=== PATIENT | female | born 1955 | race Caucasian/White ===

== ENCOUNTER 2016-08-26 13:43 | Inpatient (IN) | payer BC ==
[~2016-08-26] VITALS: Ht 167.6 cm; Wt 126.4 kg
[~2016-08-26 13:43] MED LIST: ALBU8.5H5 INH; BECL8.7A5 PO; FORM12CA PO; GABA100C8 PO; HYDR12.53 PO; LEVO25TA2 PO; OXYC-302 PO
[2016-08-26] MEDS ORDERED: NITROGLYCERIN OINT 2%, 1GM TP ONE ×2 (14:00→14:10)
[2016-08-26] MEDS ORDERED: SODIUM CHLORIDE FLUSH 10ML SYR IVF ONE (14:00)
[2016-08-26 14:31] LABS: ASPARTATE AMINO TRANSFERASE 22 U/L (15-37); BLOOD UREA NITROGEN 15 mg/dL (7-18)
[2016-08-26 14:37] LABS: IS PT STATUS REG ER OR PRE ER? YES
[2016-08-26] MEDS ORDERED: ACETAMINOPHEN 325 MG TABLET ONE (15:27)
[2016-08-26] MEDS ORDERED: ACETAMINOPHEN 325 MG TABLET PO ONE (15:30)
[2016-08-26] MEDS ORDERED: POTASSIUM CHLORIDE 20 MEQ TAB.ER.PRT ONE (15:54)
[2016-08-26] MEDS ORDERED: POTASSIUM CHLORIDE 20 MEQ TAB.ER.PRT PO ONE ×2 (16:00→19:00)
[2016-08-26] MEDS ORDERED: TRAZ150T68 PO (16:08)
[2016-08-26] MEDS ORDERED: SERT100T5 PO (16:08)
[2016-08-26] MEDS ORDERED: FLUT1AER PO (16:08)
[2016-08-26] MEDS ORDERED: TEMAZEPAM 15 MG CAPSULE PO PRN (18:30)
[2016-08-26] MEDS ORDERED: POLYETHYLENE GLYCOL 17 GM PACKET PO PRN (18:30)
[2016-08-26] MEDS ORDERED: ENALAPRILAT 1.25 MG/ML, 2ML IVPush PRN (18:30)
[2016-08-26] MEDS ORDERED: ACETAMINOPHEN 325 MG TABLET PO PRN (18:30)
[2016-08-26] MEDS ORDERED: ONDANSETRON 2MG/ML, 2ML IVPush PRN (18:30)
[2016-08-26] MEDS ORDERED: HYDROmorphone 2 MG/ML, 1ML IVPush PRN (18:30)
[2016-08-26] MEDS ORDERED: ALBUTEROL SULFATE 2.5 MG/3 ML NPPB PRN (19:30)
[2016-08-26 19:49] VITALS: BP 129/84
[2016-08-26] MEDS: ENOXAPARIN 40 MG/0.4 ML SQ SCH (20:00)
[2016-08-26] MEDS: HYDROcodone/APAP 5/325 TABLET PO PRN (21:05)
[2016-08-26] MEDS: TRAZODONE 150MG TABLET PO SCH (21:06)
[2016-08-26 22:35] LABS: IS PT STATUS REG ER OR PRE ER? NO
[2016-08-26 22:48] LABS: PATH.CAST-FLAG NOT PRESENT; SPERM-FLAG NOT PRESENT; SRC-FLAG NOT PRESENT; XTAL-FLAG NOT PRESENT; YLC-FLAG NOT PRESENT
[2016-08-27] MEDS ORDERED: CEFTRIAXONE 1,000 MG IM SCH (00:30)
[2016-08-27] MEDS: CEFTRIAXONE PMX 1GM/50ML 50 ML IV SCH (01:00)
[2016-08-27] MEDS: HYDROcodone/APAP 5/325 TABLET PO PRN ×4 (01:28→17:53)
[2016-08-27 01:33] VITALS: BP 119/77
[2016-08-27] MEDS: ASPIRIN 325 MG TABLET EC PO SCH (05:51)
[2016-08-27] MEDS: LEVOTHYROXINE 25 MCG TABLET PO SCH (05:51)
[2016-08-27 07:02] VITALS: BP 136/85
[2016-08-27] MEDS: GABAPENTIN 100 MG CAPSULE PO SCH (07:49)
[2016-08-27] MEDS: SERTRALINE 100MG TABLET PO SCH (07:50)
[2016-08-27 08:11] LABS: BLOOD UREA NITROGEN 12 mg/dL (7-18)
[2016-08-27 08:19] LABS: IS PT STATUS REG ER OR PRE ER? NO
[2016-08-27] MEDS: FLUTICASONE/VILANTEROL 100-25MCG/INH INH SCH (08:30)
[2016-08-27] MEDS ORDERED: REGADENOSON 0.4 MG/5 ML SYRINGE ONE (08:41)
[2016-08-27] MEDS ORDERED: HYDROCHLOROTHIAZIDE 12.5 MG CAPSULE PO SCH (09:00)
[2016-08-27] MEDS ORDERED: LEVOTHYROXINE 25 MCG TABLET PO SCH (09:00)
[2016-08-27] MEDS: HYDROCHLOROTHIAZIDE 12.5 MG CAPSULE PO SCH (11:59)
[2016-08-27 12:01] VITALS: BP 120/83
[2016-08-27] MEDS: ENOXAPARIN 40 MG/0.4 ML SQ SCH (20:00)
[2016-08-27] MEDS: TRAZODONE 150MG TABLET PO SCH (20:26)
[2016-08-27 20:31] VITALS: BP 122/72
[2016-08-28] MEDS ORDERED: CEFTRIAXONE 1,000 MG IVPB SCH (00:30)
[2016-08-28] MEDS: HYDROcodone/APAP 5/325 TABLET PO PRN ×2 (00:46→06:00)
[2016-08-28] MEDS: CEFTRIAXONE PMX 1GM/50ML 50 ML IV SCH (00:49)
[2016-08-28 02:16] VITALS: BP 123/76
[2016-08-28] MEDS: ASPIRIN 325 MG TABLET EC PO SCH (06:00)
[2016-08-28] MEDS: LEVOTHYROXINE 25 MCG TABLET PO SCH (06:01)
[2016-08-28 06:42] VITALS: BP 120/79
[2016-08-28] MEDS ORDERED: CEFD300C37 PO (07:35)
[2016-08-28] MEDS ORDERED: SIMV40TA PO (07:48)
[2016-08-28] MEDS ORDERED: CEFDINIR 300 MG CAPSULE PO SCH (09:00)
[2016-08-28] MEDS: FLUTICASONE/VILANTEROL 100-25MCG/INH INH SCH (09:03)
[2016-08-28] MEDS: SERTRALINE 100MG TABLET PO SCH (09:03)
[2016-08-28] MEDS: GABAPENTIN 100 MG CAPSULE PO SCH (09:04)
[2016-08-28] MEDS: HYDROCHLOROTHIAZIDE 12.5 MG CAPSULE PO SCH (09:04)
== END 2016-08-28 11:26 | disposition home or self-care (01) | DRG 313 ==
LOC: ED 16:19 → EDIP 16:41 → 5SO 19:01 → DCLOUNGE 08-28 11:11
PROVIDERS: ADMIT Internal Medicine; ATTEND Internal Medicine
DX: R07.89 Other chest pain (principal); N39.0 Urinary tract infection, site not specified; Z68.42 Body mass index [BMI] 45.0-49.9, adult; I10 Essential (primary) hypertension; Z82.49 Family history of ischemic heart disease and other diseases of the circulatory system; E66.01 Morbid (severe) obesity due to excess calories; E03.9 Hypothyroidism, unspecified; M19.90 Unspecified osteoarthritis, unspecified site; G89.29 Other chronic pain; E78.5 Hyperlipidemia, unspecified; M54.9 Dorsalgia, unspecified; F32.9 Major depressive disorder, single episode, unspecified; Z96.653 Presence of artificial knee joint, bilateral; Z90.49 Acquired absence of other specified parts of digestive tract; Z88.0 Allergy status to penicillin; Z88.2 Allergy status to sulfonamides; Z88.6 Allergy status to analgesic agent; Z91.041 Radiographic dye allergy status
CPT/HCPCS: 36415; 71010; 78452; 80048; 80053; 80061; 81001; 83880; 84439; 84443; 84484; 85025; 85610; 85730; 87086; 93005; 93017; 99285; J0696; J2785; A9502; C9898

== ENCOUNTER 2017-08-10 11:51 | Emergency (ER) | payer BC ==
[~2017-08-10] VITALS: Ht 162.6 cm; Wt 110.0 kg
[~2017-08-10 11:51] MED LIST changes: -BECL8.7A5 PO; +BECL8.7A7 PO; +CEFD300C37 PO; +FLUT1AER PO; +GABA-826 PO; -GABA100C8 PO; +SERT100T5 PO; +SIMV40TA PO; +TRAZ150T62 PO
[2017-08-10] MEDS ORDERED: LORazepam 1MG TABLET ONE (12:08)
[2017-08-10] MEDS ORDERED: SODIUM CHLORIDE FLUSH 10ML SYR IVF ONE (12:30)
[2017-08-10] MEDS ORDERED: LORazepam 1MG TABLET PO ONE (12:30)
[2017-08-10] MEDS ORDERED: ALBUTEROL/IPRATROPIUM 2.5MG/0.5MG, 3 ML NEB ONE (12:30)
[2017-08-10 12:37] LABS: BASOPHILS # (AUTO) 0.05 x10^3/uL (0-0.1); BASOPHILS % (AUTO) 0 % (0-1); EOSINOPHILS % (AUTO) 0 % (1-7); LYMPHOCYTES # (AUTO) 2.49 x10^3/uL (1-3.4); LYMPHOCYTES % (AUTO) 18 % (22-44); MD NO; MEAN CORPUSCULAR HEMOGLOBIN 33.6 pg (27.0-34.8); MEAN CORPUSCULAR HGB CONC 33.6 g/dL (32.4-35.8); MEAN CORPUSCULAR VOLUME 100.3 fL (80-100); MEAN PLATELET VOLUME 7.7 fL (7.4-10.4); MONOCYTES # (AUTO) 0.39 x10^3/uL (0.2-0.8); MONOCYTES % (AUTO) 3 % (2-9); NEUTROPHILS # (AUTO) 11.22 x10^3/uL (1.8-6.8); NEUTROPHILS % (AUTO) 79 % (42-75); PLATELET COUNT 324 x10^3/uL (130-400); RED BLOOD COUNT 4.62 x10^6/uL (3.82-5.3); RED CELL DISTRIBUTION WIDTH 13.8 % (9.6-15.2)
[2017-08-10 12:50] LABS: ALBUMIN 3.6 g/dL (3.4-5.0); ANION GAP 13 mmol/L (5-15); CALCIUM 9.7 mg/dL (8.5-10.1); CHLORIDE 105 mmol/L (98-107); CREATININE 1.32 mg/dL (0.55-1.02)
[2017-08-10 12:54] LABS: TROPONIN I < 0.015 ng/mL (0.000-0.045)
[2017-08-10 14:41] VITALS: BP 114/68
== END 2017-08-10 14:43 | disposition home or self-care (01) ==
LOC: ED 14:37
DX: J45.41 Moderate persistent asthma with (acute) exacerbation (principal); F41.9 Anxiety disorder, unspecified; I10 Essential (primary) hypertension; M19.90 Unspecified osteoarthritis, unspecified site
CPT/HCPCS: 36415; 71045; 80048; 82040; 83880; 84484; 85025; 85379; 93005; 94640; 99285; J7620

== ENCOUNTER → 2018-02-08 | Outpatient (CLI) | payer BC | END | disposition home or self-care (01) | LOC: CFH 12:23 | PROVIDERS: ATTEND Internal Medicine | DX: J84.9 Interstitial pulmonary disease, unspecified (principal); R91.8 Other nonspecific abnormal finding of lung field | CPT/HCPCS: 71250 ==

== ENCOUNTER 2018-09-06 06:00 | Emergency (ER) | payer BC, OTHER ==
[~2018-09-06] VITALS: Ht 165.1 cm; Wt 125.0 kg
[~2018-09-06 06:00] MED LIST changes: +HYDR12.517 PO; -HYDR12.53 PO; +SERT100T32 PO; -SERT100T5 PO
--- NOTE | 2018-09-06 06:16 | NUR ---
BIB [facility] PT STARTED FEELING SOB AT 0300 TODAY, H/X ASTHMA, USED HOME INHALER WITH NO RELIEF, PER EMS ON THEIR ARRIVAL 97% R/A, RR-30, HR-65, B/P-99/50, PT RECIEVED 100 CC OF NORMAL SALINE BOLUS AND B/P RECHECK 130/70. PT ALSO C/O B/L HAND TINGLING. MONITORS APPLIED, SIDERAILS UP X2, CALL LIGHT WITHIN REACH
[2018-09-06] MEDS ORDERED: ALBUTEROL/IPRATROPIUM 2.5MG/0.5MG, 3 ML ONE (06:19)
[2018-09-06] MEDS ORDERED: ALBUTEROL/IPRATROPIUM 2.5MG/0.5MG, 3 ML NPPB ONE (06:30)
[2018-09-06] MEDS ORDERED: SODIUM CHLORIDE FLUSH 10ML SYR IVF ONE (06:30)
[2018-09-06] MEDS ORDERED: LORazepam 1MG TABLET PO ONE (06:30)
[2018-09-06] MEDS ORDERED: MONT4GRA PO (06:31)
[2018-09-06] MEDS ORDERED: SERT25TA PO (06:31)
[2018-09-06] MEDS ORDERED: LORazepam 1MG TABLET ONE (06:32)
--- NOTE | 2018-09-06 06:35 | NUR ---
PT MEDICATED PER JUN. AWAITING XRAY AND LAB RESULTS
[2018-09-06 06:46] LABS: ALANINE AMINOTRANSFERASE 23 U/L (12-78); ALBUMIN 3.6 g/dL (3.4-5.0); ANION GAP 7 mmol/L (5-15); CALCIUM 9.3 mg/dL (8.5-10.1); CHLORIDE 107 mmol/L (98-107); CREATININE 0.97 mg/dL (0.55-1.02)
[2018-09-06 06:50] LABS: ALKALINE PHOSPHATASE 54 U/L (45-117); BILIRUBIN,TOTAL 0.7 mg/dL (0.2-1.0); TOTAL PROTEIN 6.8 g/dL (6.4-8.2); TROPONIN I < 0.015 ng/mL (0.000-0.045)
[2018-09-06 06:53] LABS: BASOPHILS # (AUTO) 0.04 x10^3/uL (0-0.1); BASOPHILS % (AUTO) 0 % (0-1); EOSINOPHILS # (AUTO) 0.81 x10^3/uL (0-0.4); EOSINOPHILS % (AUTO) 8 % (1-7); LYMPHOCYTES # (AUTO) 2.99 x10^3/uL (1-3.4); LYMPHOCYTES % (AUTO) 28 % (22-44); MD NO; MEAN CORPUSCULAR HEMOGLOBIN 33.3 pg (27.0-34.8); MEAN CORPUSCULAR HGB CONC 32.6 g/dL (32.4-35.8); MEAN CORPUSCULAR VOLUME 102.2 fL (80-100); MEAN PLATELET VOLUME 7.9 fL (7.4-10.4); MONOCYTES # (AUTO) 0.73 x10^3/uL (0.2-0.8); MONOCYTES % (AUTO) 7 % (2-9); NEUTROPHILS # (AUTO) 6.05 x10^3/uL (1.8-6.8); NEUTROPHILS % (AUTO) 57 % (42-75); PLATELET COUNT 264 x10^3/uL (130-400); RED BLOOD COUNT 4.56 x10^6/uL (3.82-5.3); RED CELL DISTRIBUTION WIDTH 14.1 % (9.6-15.2)
--- NOTE | 2018-09-06 06:55 | NUR ---
REPORT GIVEN TO MEAGAN VALLECILLO
[2018-09-06 07:08] LABS: FREE T4 (FREE THYROXINE) 1.17 ng/dL (0.76-1.46)
--- NOTE | 2018-09-06 07:09 | NUR ---
receivED BEDSIDE REPORT FROM MEAGAN CHANG. PT RESTING ON GURNEY. NO ACUTE DISTRESS NOTED. PT STATES SHE DOESN'T WEAR OXYGEN AT HOME. NO NEEDS REQUESTED AT THIS TIME.
[2018-09-06 07:10] VITALS: BP 130/58
--- NOTE | 2018-09-06 07:55 | NUR ---
LATE ENTRY FOR 729 Patient/Caregiver given discharge instructions and they have confirmed that they understand the instructions. Patient ambulatory with steady gait. PT LEFT WITH ALL PERSONAL BELONGINGS. PIV D/C WITH TIP INTACT. PRESSURE DRESSING APPLIED.
== END 2018-09-06 07:56 | disposition home or self-care (01) ==
LOC: ED 07:35
DX: J45.41 Moderate persistent asthma with (acute) exacerbation (principal); F41.1 Generalized anxiety disorder
CPT/HCPCS: 36415; 71045; 80053; 83880; 84439; 84443; 84484; 85025; 93005; 94640; 99284; J7512; J7620

== ENCOUNTER 2018-10-12 17:17 | Outpatient (CLI) | payer OTHER ==
[~2018-10-12 17:17] MED LIST changes: +MONT4GRA PO; +SERT25TA PO
== END 2018-10-12 23:59 | disposition home or self-care (01) ==
LOC: RAD 17:17
PROVIDERS: ATTEND Pain Medicine Pain Medicine
DX: M16.0 Bilateral primary osteoarthritis of hip (principal); M43.16 Spondylolisthesis, lumbar region; M51.37 Other intervertebral disc degeneration, lumbosacral region; M47.896 Other spondylosis, lumbar region
CPT/HCPCS: 72110; 72170

== ENCOUNTER 2019-06-05 11:24 | Emergency (ER) | payer BC, OTHER ==
[~2019-06-05] VITALS: Ht 165.1 cm; Wt 120.7 kg
[2019-06-05] MEDS ORDERED: DIAZEPAM 5 MG TABLET ONE (11:45)
[2019-06-05] MEDS ORDERED: HYDROcodone/APAP 5/325 TABLET ONE (11:46)
[2019-06-05] MEDS ORDERED: KETOROLAC 30 MG/1 ML ONE (11:46)
--- NOTE | 2019-06-05 11:55 | NUR ---
PT MEDICATED PER ORDERS. VSS. RV'WD POC WITH HER. SON AT BEDSIDE.
[2019-06-05] MEDS ORDERED: HYDROcodone/APAP 5/325 TABLET PO ONE (12:00)
[2019-06-05] MEDS ORDERED: KETOROLAC 30 MG/1 ML IM ONE (12:00)
[2019-06-05] MEDS ORDERED: DIAZEPAM 5 MG TABLET PO ONE (12:00)
[2019-06-05 13:17] VITALS: BP 138/75
--- NOTE | 2019-06-05 13:19 | NUR ---
D/C INSTRUCTIONS, MEDS & F/U APPT RV'WD WITH PT, SHE VERBALIZES UNDERSTANDING. RX GIVEN X2. ASSISTED PT OUT OF ED VIA WC WITH SON.
== END 2019-06-05 13:21 | disposition home or self-care (01) ==
LOC: ED 13:15
DX: S39.012A Strain of muscle, fascia and tendon of lower back, initial encounter (principal); G89.29 Other chronic pain; M54.41 Lumbago with sciatica, right side; J45.909 Unspecified asthma, uncomplicated; I10 Essential (primary) hypertension; X58.XXXA Exposure to other specified factors, initial encounter; Y93.89 Activity, other specified; Y92.89 Other specified places as the place of occurrence of the external cause; Y99.8 Other external cause status
CPT/HCPCS: 96372; 99283; J1885

== ENCOUNTER 2019-08-24 05:22 | Day surgery (SDC) | payer BC ==
[~2019-08-24] VITALS: Ht 165.1 cm; Wt 122.0 kg
[~2019-08-24 05:22] MED LIST changes: +LEVO150T5 PO; +MULT-658 PO; +MV-M1TAB16 PO; +PRED10TA PO; +hydrochlorothiazide PO; +prednisone PO; +singulair PO; +trazodone PO
[2019-08-24] MEDS ORDERED: CHLORHEXIDINE 15 ML UDC MM STA (05:57)
[2019-08-24] MEDS ORDERED: MIDAZOLAM 1 MG/ML, 2ML ONE (06:13)
[2019-08-24] MEDS ORDERED: FENTANYL PF 250 MCG/5ML ONE ×2 (06:13→07:26)
[2019-08-24] MEDS ORDERED: PHENYLEPHRINE 10 MG/ML ONE (06:16)
[2019-08-24] MEDS ORDERED: GLYCOPYRROLATE 0.2MG/1ML, 5ML ONE (06:18)
[2019-08-24] MEDS ORDERED: DEXAMETHASONE 4 MG/ML, 1ML ONE (06:18)
[2019-08-24] MEDS ORDERED: NEOSTIGMINE 1 MG/ML, 10ML ONE (06:18)
[2019-08-24] MEDS ORDERED: CEFAZOLIN 1,000 MG ONE (06:18)
[2019-08-24] MEDS ORDERED: PROPOFOL 10 MG/ML, 20ML ONE (06:18)
[2019-08-24] MEDS ORDERED: ONDANSETRON 2MG/ML, 2ML ONE (06:18)
[2019-08-24] MEDS ORDERED: ROCURONIUM 10MG/ML,5ML ONE (06:18)
[2019-08-24] MEDS ORDERED: KETOROLAC 60 MG/2 ML ONE (06:25)
[2019-08-24] MEDS ORDERED: TRANEXAMIC ACID 100 MG/ML, 10ML ONE ×4 (06:25→06:42)
[2019-08-24] MEDS ORDERED: EPINEPHRINE 1 MG/ML, 1ML ONE (06:26)
[2019-08-24] MEDS ORDERED: VANCOMYCIN 1,000 MG ONE ×2 (06:26→06:40)
[2019-08-24] MEDS ORDERED: ROPIvacaine/PF 0.5%, 20 ML ONE (06:26)
[2019-08-24] MEDS ORDERED: SODIUM CHLORIDE 0.9% 50 ML ONE (06:26)
[2019-08-24] MEDS ORDERED: ROPIvacaine/PF 0.5%, 30 ML ONE (06:26)
[2019-08-24] MEDS ORDERED: morphine SULFATE 10 MG/ML, 1ML IVPush PRN (06:30)
[2019-08-24] MEDS ORDERED: ALBUTEROL/IPRATROPIUM 2.5MG/0.5MG, 3 ML NPPB PRN (06:30)
[2019-08-24] MEDS ORDERED: LABETALOL 5MG/ML, 20ML IV PRN (06:30)
[2019-08-24] MEDS ORDERED: HALOPERIDOL 5 MG/ML IV PRN (06:30)
[2019-08-24] MEDS ORDERED: PROMETHAZINE 25 MG/ML, 1ML IVPush PRN (06:30)
[2019-08-24] MEDS ORDERED: GABAPENTIN 300 MG CAPSULE PO ONE (06:30)
[2019-08-24] MEDS ORDERED: OXYcodone 5 MG/5 ML ORAL.SOL UDC PO PRN (06:30)
[2019-08-24] MEDS ORDERED: ACETAMINOPHEN 500 MG TABLET PO ONE (06:30)
[2019-08-24] MEDS ORDERED: MEPERIDINE/PF 25MG/0.5ML IVPush PRN (06:30)
[2019-08-24] MEDS ORDERED: ALBUTEROL SULFATE 2.5 MG/3 ML NPPB PRN (06:30)
[2019-08-24] MEDS ORDERED: HYDROmorphone 1 MG/ML, 1ML INJ IVPush PRN (06:30)
[2019-08-24] MEDS ORDERED: hydrALAzine 20 MG/ML, 1ML IV PRN (06:30)
[2019-08-24] MEDS ORDERED: LACTATED RINGERS 1,000 ML IV SCH (06:31)
[2019-08-24] MEDS ORDERED: SCOPOLAMINE 1MG PATCH TD ONE ×2 (06:38→07:00)
[2019-08-24] MEDS ORDERED: NS + 20MEQ KCL 1,000 ML IV SCH (06:40)
[2019-08-24] MEDS ORDERED: GENTAMICIN 80 MG/2 ML ONE ×2 (06:46)
[2019-08-24] MEDS ORDERED: MAGNESIUM HYDROXIDE 8%, 30ML UDC PO PRN (07:00)
[2019-08-24] MEDS ORDERED: OXYcodone IR 5MG TABLET PO PRN (07:00)
[2019-08-24] MEDS ORDERED: HYDROcodone/APAP 5/325 TABLET PO PRN (07:00)
[2019-08-24] MEDS ORDERED: SENNA/DOCUSATE TABLET PO PRN (07:00)
[2019-08-24] MEDS ORDERED: ONDANSETRON 4 MG TABLET PO PRN (07:00)
[2019-08-24] MEDS ORDERED: ACETAMINOPHEN 650 MG/20.3 ML UDC PO PRN (07:00)
[2019-08-24] MEDS ORDERED: ZOLPIDEM 5MG TABLET PO PRN (07:00)
[2019-08-24] MEDS ORDERED: ONDANSETRON 2MG/ML, 2ML IV PRN (07:00)
[2019-08-24] MEDS ORDERED: VANCOMYCIN PMX 1GM/200ML 200 ML IV ONE (07:00)
[2019-08-24] MEDS ORDERED: DIPHENHYDRAMINE 50 MG CAPSULE PO PRN (07:00)
[2019-08-24] MEDS ORDERED: BISACODYL 10 MG SUPP PR PRN (07:00)
[2019-08-24] MEDS ORDERED: ACETAMINOPHEN 650 MG/20.3 ML UDC ONE (08:16)
[2019-08-24] MEDS ORDERED: FENTANYL PF 100 MCG/2ML ONE ×3 (08:16→08:59)
[2019-08-24] MEDS ORDERED: ACETAMINOPHEN 325 MG TABLET ONE (08:17)
[2019-08-24] MEDS ORDERED: HYDROmorphone 2 MG/ML, 1ML ONE (08:17)
[2019-08-24] MEDS ORDERED: OXYcodone 5 MG/5 ML ORAL.SOL UDC ONE (08:17)
[2019-08-24] MEDS ORDERED: MEPERIDINE/PF 25MG/ML,1ML ONE (08:17)
[2019-08-24] MEDS ORDERED: FENTANYL PF 100 MCG/2ML IVPush ONE ×3 (08:30)
[2019-08-24] MEDS ORDERED: HYDROmorphone 1 MG/ML, 1ML INJ IV ONE ×2 (08:30)
[2019-08-24] MEDS: FENTANYL PF 100 MCG/2ML IV PRN ×3 (08:50→09:10)
[2019-08-24] MEDS ORDERED: DOCUSATE 100 MG CAPSULE PO SCH (09:00)
[2019-08-24] MEDS ORDERED: LEVOTHYROXINE 150 MCG TABLET PO SCH (09:00)
[2019-08-24] MEDS ORDERED: FLUTICASONE/VILANTEROL 100-25MCG/INH INH SCH (09:00)
[2019-08-24] MEDS ORDERED: ALBUTEROL SULFATE 2.5 MG/3 ML HHN SCH (11:00)
[2019-08-24] MEDS ORDERED: BUDESONIDE 0.5 MG/2 ML INHA HHN SCH (11:00)
[2019-08-24] MEDS ORDERED: GABAPENTIN 100 MG CAPSULE PO SCH (11:00)
[2019-08-24 13:00] VITALS: BP 126/77
[2019-08-24] MEDS ORDERED: ASPIRIN 81 MG TABLET EC PO SCH (18:00)
[2019-08-25] MEDS ORDERED: DEXAMETHASONE 4 MG/ML, 1ML IVPush SCH (06:00)
== END 2019-08-24 15:52 | disposition home or self-care (01) ==
LOC: OUT 05:22 → 4NE 10:05 → OUT 15:52
PROVIDERS: ATTEND Orthopaedic Surgery
DX: M16.11 Unilateral primary osteoarthritis, right hip (principal); Z11.59 Encounter for screening for other viral diseases; M19.90 Unspecified osteoarthritis, unspecified site; I10 Essential (primary) hypertension; E03.9 Hypothyroidism, unspecified; G47.33 Obstructive sleep apnea (adult) (pediatric); Z88.1 Allergy status to other antibiotic agents; Z88.8 Allergy status to other drugs, medicaments and biological substances; Z88.2 Allergy status to sulfonamides; Z91.013 Allergy to seafood; Z88.5 Allergy status to narcotic agent; Z88.9 Allergy status to unspecified drugs, medicaments and biological substances; Z79.899 Other long term (current) drug therapy; Z82.5 Family history of asthma and other chronic lower respiratory diseases; Z82.49 Family history of ischemic heart disease and other diseases of the circulatory system
CPT/HCPCS: 27130; 72170; 73501; 97162; C1713; C1776; J0171; J0690; J1100; J1170; J1580; J1885; J2175; J2250; J2370; J2405; J2704; J2710; J2795; J3010; J3370; J7120; U0001; G0378

== ENCOUNTER → 2019-11-11 | Outpatient (CLI) | payer BC ==
[~2019-11-11] MED LIST changes: +ESTROVENT; +SINGU; +ZOLOF
[2019-11-11 14:06] LABS: INTERNATIONAL NORMALIZED RATIO 0.96 (0.93-1.1); PROTHROMBIN TIME 9.9 Seconds (9.6-11.5)
[2019-11-11 14:08] LABS: BASOPHILS # (AUTO) 0.07 x10^3/uL (0-0.1); BASOPHILS % (AUTO) 1 % (0-1); EOSINOPHILS # (AUTO) 1.31 x10^3/uL (0-0.4); EOSINOPHILS % (AUTO) 11 % (1-7); LYMPHOCYTES # (AUTO) 3.23 x10^3/uL (1-3.4); LYMPHOCYTES % (AUTO) 28 % (22-44); MD NO; MEAN CORPUSCULAR HGB CONC 32.4 g/dL (32.4-35.8); MEAN CORPUSCULAR VOLUME 98.7 fL (80-100); MONOCYTES # (AUTO) 0.87 x10^3/uL (0.2-0.8); MONOCYTES % (AUTO) 7 % (2-9); NEUTROPHILS # (AUTO) 6.27 x10^3/uL (1.8-6.8); NEUTROPHILS % (AUTO) 53 % (42-75); PLATELET COUNT 383 x10^3/uL (130-400); RED BLOOD COUNT 4.74 x10^6/uL (3.82-5.3); RED CELL DISTRIBUTION WIDTH 14.5 % (9.6-15.2)
[2019-11-11 14:09] LABS: ANION GAP 5 mmol/L (5-15); CALCIUM 10.1 mg/dL (8.5-10.1); CHLORIDE 104 mmol/L (98-107)
[2019-11-11 14:10] LABS: CREATININE 0.93 mg/dL (0.55-1.02)
== END | disposition home or self-care (01) ==
LOC: STAR 12:54
PROVIDERS: ATTEND Orthopaedic Surgery
DX: Z01.818 Encounter for other preprocedural examination (principal); Z11.59 Encounter for screening for other viral diseases; T84.032A Mechanical loosening of internal right knee prosthetic joint, initial encounter; T84.84XA Pain due to internal orthopedic prosthetic devices, implants and grafts, initial encounter; Y79.2 Prosthetic and other implants, materials and accessory orthopedic devices associated with adverse incidents; Y92.89 Other specified places as the place of occurrence of the external cause; Z79.01 Long term (current) use of anticoagulants
CPT/HCPCS: 36415; 80048; 83036; 85025; 85610; 85730; 87081; 87635; 93005

== ENCOUNTER 2019-11-16 10:23 | Inpatient (IN) | payer BC ==
[~2019-11-16] VITALS: Ht 167.6 cm; Wt 120.0 kg
[~2019-11-16 10:23] MED LIST changes: +EPINEPHRINE 1 MG/ML, 1ML ONE; -ESTROVENT; +KETOROLAC 60 MG/2 ML ONE; +ROPIvacaine/PF 0.5%, 20 ML ONE; +ROPIvacaine/PF 0.5%, 30 ML ONE; -SINGU; +SODIUM CHLORIDE 0.9% 50 ML ONE; +TRANEXAMIC ACID 100 MG/ML, 10ML ONE; +VANCOMYCIN 1,000 MG ONE; -ZOLOF
[2019-11-16] MEDS ORDERED: LACTATED RINGERS 1,000 ML IV SCH (10:47)
[2019-11-16] MEDS ORDERED: MIDAZOLAM 1 MG/ML, 2ML ONE (10:50)
[2019-11-16] MEDS ORDERED: FENTANYL PF 250 MCG/5ML ONE ×2 (10:50→13:13)
[2019-11-16] MEDS ORDERED: BUPIVACAINE/PF 0.5% ONE (10:51)
[2019-11-16 10:54] VITALS: BP 120/72
[2019-11-16] MEDS ORDERED: ACETAMINOPHEN 500 MG TABLET PO ONE (11:00)
[2019-11-16] MEDS ORDERED: GABAPENTIN 300 MG CAPSULE PO ONE (11:00)
[2019-11-16] MEDS ORDERED: PHARMACOKINETIC CONSULTATION MC ONE (11:00)
[2019-11-16] MEDS ORDERED: CHLORHEXIDINE 15 ML UDC MM ONE (11:00)
[2019-11-16] MEDS ORDERED: VANCOMYCIN PER PHARMACY MC PRN (11:00)
[2019-11-16] MEDS ORDERED: ESTROVENT (11:16)
[2019-11-16] MEDS ORDERED: ZOLOF (11:16)
[2019-11-16] MEDS ORDERED: SINGU (11:16)
[2019-11-16] MEDS ORDERED: VANCOMYCIN 2,000 MG in SODIUM CHLORIDE 0.9% 500 ML IV ONE (11:30)
[2019-11-16] MEDS ORDERED: ACETAMINOPHEN 650 MG/20.3 ML UDC PO PRN (13:00)
[2019-11-16] MEDS ORDERED: ONDANSETRON 4 MG TABLET PO PRN (13:00)
[2019-11-16] MEDS ORDERED: SENNA/DOCUSATE TABLET PO PRN (13:00)
[2019-11-16] MEDS ORDERED: BISACODYL 10 MG SUPP PR PRN (13:00)
[2019-11-16] MEDS ORDERED: DIPHENHYDRAMINE 50 MG CAPSULE PO PRN (13:00)
[2019-11-16] MEDS ORDERED: CEFAZOLIN 1,000 MG ONE (13:00)
[2019-11-16] MEDS ORDERED: HYDROmorphone 1 MG/ML, 1ML INJ IV PRN (13:00)
[2019-11-16] MEDS ORDERED: ZOLPIDEM 5MG TABLET PO PRN (13:00)
[2019-11-16] MEDS ORDERED: PROPOFOL 10 MG/ML, 20ML ONE ×3 (13:00→13:43)
[2019-11-16] MEDS ORDERED: MAGNESIUM HYDROXIDE 8%, 30ML UDC PO PRN (13:00)
[2019-11-16] MEDS ORDERED: ONDANSETRON 2MG/ML, 2ML ONE (13:00)
[2019-11-16] MEDS ORDERED: ONDANSETRON 2MG/ML, 2ML IV PRN (13:00)
[2019-11-16] MEDS ORDERED: DEXAMETHASONE 4 MG/ML, 1ML ONE (13:00)
[2019-11-16] MEDS ORDERED: HYDROCORTISONE 100 MG INJ. ONE (13:06)
[2019-11-16] MEDS ORDERED: FENTANYL PF 100 MCG/2ML ONE ×2 (14:11→14:52)
[2019-11-16] MEDS ORDERED: MEPERIDINE/PF 25MG/ML,1ML ONE (14:52)
[2019-11-16] MEDS ORDERED: OXYcodone 5 MG/5 ML ORAL.SOL UDC ONE (14:52)
[2019-11-16] MEDS ORDERED: DIPHENHYDRAMINE 50 MG/ML, 1ML ONE (14:52)
[2019-11-16] MEDS ORDERED: DIPHENHYDRAMINE 50 MG/ML, 1ML IVPush PRN (15:00)
[2019-11-16] MEDS ORDERED: ONDANSETRON 2MG/ML, 2ML IVPush PRN (15:00)
[2019-11-16] MEDS ORDERED: EPHEDRINE 50 MG/ML, 1ML IVPush PRN (15:00)
[2019-11-16] MEDS ORDERED: HYDROmorphone 1 MG/ML, 1ML INJ IVPush PRN (15:00)
[2019-11-16] MEDS ORDERED: LABETALOL 5MG/ML, 20ML IV PRN (15:00)
[2019-11-16] MEDS ORDERED: FENTANYL PF 100 MCG/2ML IV PRN (15:00)
[2019-11-16] MEDS ORDERED: hydrALAzine 20 MG/ML, 1ML IV PRN (15:00)
[2019-11-16] MEDS ORDERED: MEPERIDINE/PF 25MG/0.5ML IVPush PRN (15:00)
[2019-11-16] MEDS ORDERED: PROMETHAZINE 25 MG/ML, 1ML IVPush PRN (15:00)
[2019-11-16] MEDS ORDERED: OXYcodone 5 MG/5 ML ORAL.SOL UDC PO PRN (15:00)
[2019-11-16 16:50] VITALS: BP 133/86
[2019-11-16] MEDS: GABAPENTIN 100 MG CAPSULE PO SCH ×2 (17:12→23:15)
[2019-11-16] MEDS: ASPIRIN 81 MG TABLET EC PO SCH (17:12)
[2019-11-16] MEDS: NS + 20MEQ KCL 1,000 ML IV SCH (17:52)
[2019-11-16] MEDS: CEFAZOLIN PMX 2GM/50ML 50 ML IVPB SCH (18:53)
[2019-11-16] MEDS: OXYcodone/APAP 10/325MG TABLET PO PRN ×2 (18:55→23:16)
[2019-11-16 19:27] VITALS: BP 114/72
[2019-11-16] MEDS: DOCUSATE 100 MG CAPSULE PO SCH (23:15)
[2019-11-17 00:03] VITALS: BP 121/68
[2019-11-17] MEDS: NS + 20MEQ KCL 1,000 ML IV SCH ×2 (01:12→13:42)
[2019-11-17] MEDS: CEFAZOLIN PMX 2GM/50ML 50 ML IVPB SCH (04:07)
[2019-11-17] MEDS: OXYcodone/APAP 10/325MG TABLET PO PRN ×4 (04:08→16:04)
[2019-11-17 04:14] VITALS: BP 129/68
[2019-11-17] MEDS ORDERED: DEXAMETHASONE 4 MG/ML, 1ML IVPush SCH (06:00)
[2019-11-17 06:50] VITALS: BP 115/73
[2019-11-17] MEDS: DOCUSATE 100 MG CAPSULE PO SCH (07:53)
[2019-11-17] MEDS: ASPIRIN 81 MG TABLET EC PO SCH (07:54)
[2019-11-17] MEDS: GABAPENTIN 100 MG CAPSULE PO SCH ×3 (07:54→16:05)
[2019-11-17] MEDS ORDERED: LEVOTHYROXINE 150 MCG TABLET PO SCH (09:00)
[2019-11-17] MEDS ORDERED: FLUTICASONE/VILANTEROL 100-25MCG/INH INH SCH (09:00)
[2019-11-17] MEDS ORDERED: OXYC-307 PO (09:55)
[2019-11-17] MEDS ORDERED: TRAM50TA2 PO (09:55)
[2019-11-17] MEDS ORDERED: CEPH-368 PO (09:56)
[2019-11-17 12:38] VITALS: BP 138/82
[2019-11-17 15:00] VITALS: BP 136/78
== END 2019-11-17 16:30 | disposition home or self-care (01) | DRG 468 ==
LOC: ORIP 10:23 → 4NE 16:48 → DCLOUNGE 11-17 16:12
PROVIDERS: ADMIT Orthopaedic Surgery; ATTEND Orthopaedic Surgery
PROC: 0SRC0J9 Replacement of Right Knee Joint with Synthetic Substitute, Cemented, Open Approach (ICD-10-PCS; 2019-11-16)
PROC: 0SPC0JZ Removal of Synthetic Substitute from Right Knee Joint, Open Approach (ICD-10-PCS; principal; 2019-11-16 12:30)
DX: T84.032A Mechanical loosening of internal right knee prosthetic joint, initial encounter (principal); Y83.8 Other surgical procedures as the cause of abnormal reaction of the patient, or of later complication, without mention of misadventure at the time of the procedure; Y92.89 Other specified places as the place of occurrence of the external cause
CPT/HCPCS: 36415; 73560; S0020; 85014; 85018; 86850; 86900; C1713; G0378; J0171; J0690; J1100; J1885; J2175; J2250; J2405; J2704; J2795; J3010; J3370; C1762; C1776; J1200; J1720; J7040; J7120; J7512

== ENCOUNTER 2020-02-21 10:54 | Inpatient (IN) | payer BC ==
[~2020-02-21] VITALS: Ht 165.1 cm; Wt 101.2 kg
[~2020-02-21 10:54] MED LIST changes: +CEPH-368 PO; -EPINEPHRINE 1 MG/ML, 1ML ONE; +ESTROVENT; -KETOROLAC 60 MG/2 ML ONE; +OXYC-307 PO; -ROPIvacaine/PF 0.5%, 20 ML ONE; -ROPIvacaine/PF 0.5%, 30 ML ONE; +SINGU; -SODIUM CHLORIDE 0.9% 50 ML ONE; +TRAM50TA2 PO; -TRANEXAMIC ACID 100 MG/ML, 10ML ONE; -VANCOMYCIN 1,000 MG ONE; +ZOLOF
--- NOTE | 2020-02-21 11:00 | NUR ---
INITIAL PT CONTACT. PT PRESENTS TO ED VIA EMS C/O DIARRHEA X6 MONTHS. PT STATES "I CALLED MY SON THIS MORNING AND HE TOLD ME TO COME IN TO GET EVALUATED, HE IS WORRIED I HAVE LOST 60LBS IN THE PAST 60 MONTHS." PT STATES SHE "HAS A NAGGING COUGH AND CONGESTION SINCE THE DIARRHEA STARTED 6 MONTHS AGO." CALL LIGHT WITHIN REACH. CONTINUOUS PULSE OX IN PLACE. PROVIDED WARM BLANKET. UP TO BATHROOM WITH THIS RN. PT DENIES ANY NEEDS AT THIS TIME.
--- NOTE | 2020-02-21 11:30 | NUR ---
UPON MEDICATING PT, PT FOUND TO HAVE O2 SAT 88-90%, PT PLACED ON 1.5L VIA NASAL CANNULA. PT TOLERATING WELL.
[2020-02-21] MEDS ORDERED: METOCLOPRAMIDE 5 MG/ML, 2ML ONE (11:31)
[2020-02-21] MEDS ORDERED: LORazepam 2 MG/ML, 1ML ONE (11:32)
[2020-02-21 11:59] LABS: MICROSCOPIC INDICATED
[2020-02-21] MEDS ORDERED: METOCLOPRAMIDE 5 MG/ML, 2ML IVPush ONE (12:00)
[2020-02-21] MEDS ORDERED: LORazepam 2 MG/ML, 1ML IVPush ONE (12:00)
--- NOTE | 2020-02-21 12:00 | NUR ---
PT SITTING UPRIGHT ON GURNEY WITH EYES CLOSED AND TV. PT PROVIDED PILLOW AND WARM BLANKET. PT DENIES ANY ADDITIONAL NEEDS AT THIS TIME. CALL LIGHT AND PERSONAL BELONGINGS WITHIN REACH.
[2020-02-21 12:07] LABS: BASOPHILS % (AUTO) 0 % (0-1); EOSINOPHILS % (AUTO) 0 % (1-7); LYMPHOCYTES % (AUTO) 19 % (22-44); MEAN CORPUSCULAR HEMOGLOBIN 32.7 pg (27.0-34.8); MEAN CORPUSCULAR HGB CONC 33.5 g/dL (32.4-35.8); MEAN PLATELET VOLUME 8.1 fL (7.4-10.4); MONOCYTES % (AUTO) 9 % (2-9); NEUTROPHILS % (AUTO) 72 % (42-75); PLATELET COUNT 214 x10^3/uL (130-400); RED BLOOD COUNT 4.48 x10^6/uL (3.82-5.3); RED CELL DISTRIBUTION WIDTH 14.4 % (9.6-15.2)
[2020-02-21 12:11] LABS: MD NO
[2020-02-21 12:17] LABS: ALANINE AMINOTRANSFERASE 13 U/L (12-78); ALBUMIN 3.2 g/dL (3.4-5.0); ANION GAP 6 mmol/L (5-15); CALCIUM 9.3 mg/dL (8.5-10.1); CHLORIDE 100 mmol/L (98-107)
[2020-02-21 12:19] LABS: ALKALINE PHOSPHATASE 54 U/L (45-117); BILIRUBIN,TOTAL 0.7 mg/dL (0.2-1.0)
--- NOTE | 2020-02-21 12:20 | NUR ---
PT TO CT
[2020-02-21] MEDS ORDERED: SODIUM CHLORIDE FLUSH 10ML SYR IVF ONE (12:30)
--- NOTE | 2020-02-21 12:36 | NUR ---
PT RETURNED FROM CT
[2020-02-21] MEDS ORDERED: POTASSIUM CHLORIDE 20 MEQ PACKET ONE (12:42)
[2020-02-21] MEDS ORDERED: POTASSIUM CHLORIDE 40 MEQ in SODIUM CHLORIDE 0.9% 500 ML IV ONE (13:00)
[2020-02-21] MEDS ORDERED: POTASSIUM CHLORIDE 20 MEQ PACKET PO ONE (13:00)
--- NOTE | 2020-02-21 13:20 | NUR ---
BREAK RN: REPORT RECEIVED FROM MEAGAN SHAW. PT TRANSPORTED FROM [facility] TO HOSPITAL BED. VITAL SIGNS OBTAINED. VSS. MEDICATION BEING ADMINISTERED PER EMAR. PT RESTING COMFORTABLY. TBAD. AWAITING FOR BED ASSIGNMENT.
--- NOTE | 2020-02-21 14:02 | NUR ---
PT SITTING UPRIGHT ON HOSPITAL BED, NAD, VSS. PT DENIES ANY ADDITIONAL NEEDS AT THIS TIME. CALL LIGHT AND PERSONAL BELONGINGS WITHIN REACH. LAB AT BEDSIDE. CONTINUOUS PULSE OX AND CARDIAC MONITORING IN PLACE.
[2020-02-21] MEDS ORDERED: ENOXAPARIN 40 MG/0.4 ML ONE (14:57)
[2020-02-21] MEDS ORDERED: MAGNESIUM SULFATE PMX 2GM/50ML 50 ML ONE (14:58)
[2020-02-21 14:59] LABS: C-REACTIVE PROTEIN, QUANT 5.35 mg/dL (0.02-0.49)
[2020-02-21] MEDS ORDERED: ONDANSETRON 2MG/ML, 2ML IVPush PRN (15:00)
[2020-02-21] MEDS ORDERED: ENOXAPARIN 40 MG/0.4 ML SQ SCH (15:00)
[2020-02-21] MEDS ORDERED: ACETAMINOPHEN 325 MG TABLET PO PRN (15:00)
[2020-02-21] MEDS ORDERED: MAGNESIUM SULFATE PMX 2GM/50ML 50 ML IV ONE (15:00)
--- NOTE | 2020-02-21 15:00 | NUR ---
PT SITTING UPRIGHT ON HOSPITAL BED. VSS, FLORENCIO. SON HAM UPDATED ON PT STATUS AND SPEAKING WITH PATIENT THROUGH DOOR. PT DENIES ANY NEEDS AT THIS TIME. CALL LIGHT AND PERSONAL BELONGINGS WITHIN REACH.
[2020-02-21 15:23] LABS: FREE T4 (FREE THYROXINE) 1.34 ng/dL (0.76-1.46)
[2020-02-21 15:26] LABS: PROTIME 10.6 Seconds (9.6-11.5)
[2020-02-21] MEDS ORDERED: POTASSIUM PHOSPHATE 22 MEQ in SODIUM CHLORIDE 0.9% 500 ML IV ONE (15:30)
[2020-02-21 15:42] LABS: HCT (SEDRATE) 43.8 % (34.6-47.8)
--- NOTE | 2020-02-21 15:45 | NUR ---
PT TO CT
[2020-02-21] MEDS ORDERED: LEVOFLOXACIN/PMX 750MG/150ML 150 ML IV SCH (16:30)
[2020-02-21] MEDS: DOXYCYCLINE 100 MG in DEXTROSE 5% 250 ML IV SCH (16:33)
--- NOTE | 2020-02-21 17:03 | NUR ---
PT UPRIGHT ON HOSPITAL BED WATCHING TV, RESPONDS APPROP TO STAFF, NAD, COMFORT MEASURES PROVIDED, CALL LIGHT WITHIN REACH, AWAITING BM FOR STOOL SAMPLE.
[2020-02-21] MEDS: GABAPENTIN 100 MG CAPSULE PO SCH ×2 (18:07→21:46)
--- NOTE | 2020-02-21 19:07 | NUR ---
REPORT GIVEN TO ARNULFO
--- NOTE | 2020-02-21 19:08 | NUR ---
Report received from MEAGAN Jon. This RN to assume care. Awaiting room for admission.
--- NOTE | 2020-02-21 20:05 | NUR ---
Patient sleeping in hospital bed. Respirations even and unlabored. No needs at this time.
[2020-02-21] MEDS: SODIUM CHLORIDE FLUSH 10ML SYR IVF SCH (21:00)
[2020-02-21] MEDS ORDERED: MONTELUKAST 10 MG TABLET PO SCH (21:00)
[2020-02-21] MEDS ORDERED: MELATONIN 5 MG TABLET PO PRN (21:00)
--- NOTE | 2020-02-21 21:30 | NUR ---
Meds admin per jun. Assisted patient to bedside commode. SPO2 on RA 84%. Patient does not wear O2 at home. Placed back on 3lpm NC.
[2020-02-21] MEDS ORDERED: FAMOTIDINE 20 MG/2 ML ONE (21:34)
[2020-02-21] MEDS: FAMOTIDINE 20 MG/2 ML IVPush SCH (21:45)
[2020-02-21] MEDS ORDERED: OXYcodone/APAP 10/325MG TABLET ONE (22:16)
[2020-02-21] MEDS: OXYcodone/APAP 10/325MG TABLET PO PRN (22:23)
--- NOTE | 2020-02-21 22:30 | NUR ---
Patient c/o hip pain due to a recent hip replacement. Admin PRN meds per mar for pain. No other needs at this time.
--- NOTE | 2020-02-21 23:13 | NUR ---
Report given to MEAGAN Rodriguez. Patient to be transferred to room [id number].
[2020-02-22 01:30] VITALS: BP 109/65
[2020-02-22 01:32] VITALS: BP 115/76
[2020-02-22 01:35] VITALS: BP 120/81
[2020-02-22] MEDS: DOXYCYCLINE 100 MG in DEXTROSE 5% 250 ML IV SCH (01:57)
[2020-02-22] MEDS: OXYcodone/APAP 10/325MG TABLET PO PRN ×2 (03:03→10:50)
[2020-02-22] MEDS: GABAPENTIN 100 MG CAPSULE PO SCH ×2 (05:24→09:10)
[2020-02-22 05:42] LABS: BASOPHILS % (AUTO) 0 % (0-1); EOSINOPHILS % (AUTO) 0 % (1-7); LYMPHOCYTES % (AUTO) 34 % (22-44); MEAN CORPUSCULAR HEMOGLOBIN 32.9 pg (27.0-34.8); MEAN CORPUSCULAR HGB CONC 33.5 g/dL (32.4-35.8); MEAN PLATELET VOLUME 8.7 fL (7.4-10.4); MONOCYTES % (AUTO) 11 % (2-9); NEUTROPHILS % (AUTO) 56 % (42-75); PLATELET COUNT 209 x10^3/uL (130-400); RED BLOOD COUNT 4.22 x10^6/uL (3.82-5.3); RED CELL DISTRIBUTION WIDTH 14.6 % (9.6-15.2)
[2020-02-22 05:58] LABS: MD NO
[2020-02-22] MEDS ORDERED: POTASSIUM CHLORIDE 20 MEQ TAB.ER.PRT PO ONE (06:30)
[2020-02-22 07:29] VITALS: BP 120/79
[2020-02-22] MEDS ORDERED: SERTRALINE 50MG TABLET PO SCH (09:00)
[2020-02-22] MEDS ORDERED: MULTIVITAMIN 1 TABLET PO SCH (09:00)
[2020-02-22] MEDS: SODIUM CHLORIDE FLUSH 10ML SYR IVF SCH (09:00)
[2020-02-22] MEDS ORDERED: FLUTICASONE/VILANTEROL 100-25MCG/INH INH SCH (09:00)
[2020-02-22] MEDS ORDERED: FLUTICASONE NASAL SPRAY 16GM NAS SCH (09:00)
[2020-02-22] MEDS ORDERED: LEVOTHYROXINE 150 MCG TABLET PO SCH (09:00)
[2020-02-22] MEDS: FAMOTIDINE 20 MG/2 ML IVPush SCH (09:11)
[2020-02-22 10:54] LABS: ANION GAP 4 mmol/L (5-15); CALCIUM 8.8 mg/dL (8.5-10.1); CHLORIDE 102 mmol/L (98-107)
[2020-02-22 10:55] LABS: CREATININE 0.78 mg/dL (0.55-1.02)
[2020-02-22] MEDS ORDERED: LEVO750T6 PO (11:08)
[2020-02-22] MEDS ORDERED: ALBUTEROL HFA 90 MCG/SPRAY INH PRN (12:00)
[2020-02-22 12:56] VITALS: BP 113/76
[2020-02-22] MEDS ORDERED: DEXA6TAB6 PO (13:13)
== END 2020-02-22 14:00 | disposition home or self-care (01) | DRG 177 ==
LOC: ED 12:57 → EDIP 14:33 → 4EST 23:48
PROVIDERS: ADMIT Hospitalist; ATTEND Hospitalist
DX: U07.1 COVID-19 (principal); J12.89 Other viral pneumonia; J96.01 Acute respiratory failure with hypoxia; E03.9 Hypothyroidism, unspecified; E87.6 Hypokalemia; F32.9 Major depressive disorder, single episode, unspecified; G47.33 Obstructive sleep apnea (adult) (pediatric); G89.29 Other chronic pain; I10 Essential (primary) hypertension; J32.9 Chronic sinusitis, unspecified; J45.909 Unspecified asthma, uncomplicated; Z96.653 Presence of artificial knee joint, bilateral; M19.90 Unspecified osteoarthritis, unspecified site; Z91.041 Radiographic dye allergy status; R19.7 Diarrhea, unspecified; Z88.0 Allergy status to penicillin; Z88.2 Allergy status to sulfonamides; Z88.5 Allergy status to narcotic agent; Z91.013 Allergy to seafood; Z90.710 Acquired absence of both cervix and uterus
CPT/HCPCS: 36415; 70486; 71045; 74176; 80048; 80053; 81001; 82607; 82728; 83516; 83605; 83615; 83690; 83735; 84100; 84132; 84145; 84439; 84443; 85025; 85049; 85379; 85384; 85610; 85651; 85730; 86140; 87040; 87086; 93005; 96365; 96366; 96372; 96375; 99291; G0378; J1650; J1956; J3480; J7060; J2060; J2765; J3475; J7040; U0003